=== PATIENT | male | born 2000 | race Two or more races ===

== ENCOUNTER 2024-04-09 08:30 | Emergency (ER) | payer OTHER ==
[~2024-04-09] VITALS: Ht 165.1 cm; Wt 54.5 kg
[2024-04-09 08:46] VITALS: TEMP 98.4
[2024-04-09] MEDS: LORazepam 1 MG TABLET PO ONE (08:47)
[2024-04-09] MEDS ORDERED: FLUO-418 PO (08:50)
[2024-04-09] MEDS ORDERED: HYDR-3831 PO (08:50)
[2024-04-09 09:56] VITALS: BP 122/70; PULSE 70; RESP 16
== END 2024-04-09 10:57 | disposition home or self-care (01) ==
LOC: EMS 08:30
DX: F41.9 Anxiety disorder, unspecified (principal)
CPT/HCPCS: 93005; 99284; Z7502; Z7610

== ENCOUNTER 2024-04-14 10:52 | Emergency (ER) | payer OTHER ==
[~2024-04-14] VITALS: Ht 167.6 cm; Wt 59.1 kg
[~2024-04-14 10:52] MED LIST: FLUO-418 PO; HYDR-3831 PO
[2024-04-14 11:05] VITALS: TEMP 98.1
[2024-04-14 12:57] LABS: BASOPHILS % (AUTO) 0.2 % (0.0-2.0); EOSINOPHILS % (AUTO) 0.1 % (1.0-6.0); HEMATOCRIT 44.8 % (41-53); MEAN CORPUSCULAR HEMOGLOBIN 30.6 pg (26.0-34.0); MEAN CORPUSCULAR HGB CONC 33.4 G/dL (31.0-37.0); MEAN CORPUSCULAR VOLUME 92 fL (80-100); MONOCYTES # (AUTO) 0.4 K/uL (0.1-1.0); MONOCYTES % (AUTO) 7.5 % (2.0-9.0); NEUTROPHILS # (AUTO) 3.5 K/uL (1.8-7.7); NEUTROPHILS % (AUTO) 71.2 % (40.0-70.0); PLATELET COUNT (AUTO) 221 K/uL (150-450); WHITE BLOOD COUNT (AUTO) 4.9 K/uL (4.5-11.0)
[2024-04-14 13:10] LABS: ANION GAP 5 mmol/L (8-16); CALCIUM, TOTAL 9.7 mg/dL (8.8-10.5); CARBON DIOXIDE 32 mmol/L (22-29); CHLORIDE 101 mmol/L (98-107); CREATININE 0.81 mg/dL (0.60-1.30); GLOMERULAR FILTR. RATE CALC > 60 mL/min (>60); GLUCOSE,RANDOM 97 mg/dL (70-110); POTASSIUM 4.7 mmol/L (3.5-5.1); SODIUM SERUM 138 mmol/L (136-145); UREA NITROGEN, BLOOD 8 mg/dL (7-18)
[2024-04-14 13:16] LABS: ALANINE AMINOTRANSFERASE 19 U/L (12-78); ALBUMIN 4.2 g/dL (3.4-5.0); ALKALINE PHOSPHATASE 81 U/L (46-116); ASPARTATE AMINOTRANSFERASE 16 U/L (15-37); BILIRUBIN,TOTAL 0.5 mg/dL (0.1-1.0); LIPASE 43 U/L (16-77); TOTAL PROTEIN, SERUM 7.6 g/dL (6.4-8.2)
[2024-04-14] MEDS: ONDANSETRON HCL 4 MG TABLET PO ONE (14:35)
[2024-04-14 15:13] LABS: APPEARANCE,URINE CLEAR (CLEAR); BILIRUBIN,URINE NEGATIVE (NEGATIVE); COLOR,URINE COLORLESS (YELLOW); GLUCOSE, URINE (UA) NEGATIVE (NEGATIVE); LEUKOCYTE ESTERASE ,URINE NEGATIVE (NEGATIVE); NITRATE,URINE NEGATIVE (NEGATIVE); OCCULT BLOOD,URINE NEGATIVE (NEGATIVE); PROTEIN,URINE NEGATIVE (NEGATIVE); SPECIFIC GRAVITIY, URINE 1.007 (1.003-1.030); UROBILINOGEN,URINE <=1.0 mg/dL (<=1.0)
[2024-04-14 15:19] LABS: ALCOHOL, URINE DRUG SCREEN NEGATIVE (NEGATIVE); AMPHET/METH SCREEN,URINE NEGATIVE (NEGATIVE); BARBITURATE SCREEN, URINE NEGATIVE (NEGATIVE); BENZODIAZEPINES SCREEN,URINE NEGATIVE (NEGATIVE); CANNABINOID SCREEN,URINE NEGATIVE (NEGATIVE); COCAINE SCREEN,URINE NEGATIVE (NEGATIVE); METHADONE SCREEN, URINE NEGATIVE (NEGATIVE); OPIATE SCREEN,URINE NEGATIVE (NEGATIVE); PHENCYCLIDINE SCREEN,URINE NEGATIVE (NEGATIVE)
[2024-04-14] MEDS ORDERED: ONDA-104 PO (16:01)
[2024-04-14] MEDS ORDERED: HYDR-3831 PO (16:08)
[2024-04-14 16:14] VITALS: BP 128/82; PULSE 70; RESP 18
== END 2024-04-14 16:15 | disposition home or self-care (01) ==
LOC: EMS 10:52
DX: R11.10 Vomiting, unspecified (principal); F41.9 Anxiety disorder, unspecified
CPT/HCPCS: 99283; 80053; 83690; 85025; 36415; 80307; 81003; Q0162

== ENCOUNTER 2024-05-08 10:22 | Emergency (ER) | payer OTHER ==
[~2024-05-08] VITALS: Ht 165.1 cm; Wt 51.8 kg
[~2024-05-08 10:22] MED LIST changes: +ONDA-104 PO
[2024-05-08 10:26] VITALS: TEMP 98.7
[2024-05-08] MEDS: SODIUM CHLORIDE 0.9% 1,000 ML IV ONE (10:57)
[2024-05-08] MEDS: FAMOTIDINE 20 MG/2 ML VIAL IVP ONE (10:57)
[2024-05-08] MEDS: KETOROLAC TROMETHAMINE 30 MG/ML VIAL IVP ONE (10:58)
[2024-05-08] MEDS: ONDANSETRON HCL 4 MG/2 ML VIAL IVP ONE (10:58)
[2024-05-08] MEDS: MAG HYDROX/ALUMINUM HYD/SIMETH 30 ML SUSPENSION UDCUP PO ONE (10:58)
[2024-05-08] MEDS ORDERED: SODIUM CHLORIDE 0.9% 100 ML ONE (11:09)
[2024-05-08] MEDS ORDERED: IOHEXOL 350 MG/ML 100 ML VIAL ONE (11:09)
[2024-05-08 11:10] LABS: BASOPHILS % (AUTO) 0.2 % (0.0-2.0); EOSINOPHILS % (AUTO) 0.1 % (1.0-6.0); HEMATOCRIT 43.8 % (41-53); HEMOGLOBIN 14.9 g/dL (13.5-17.5); LYMPHOCYTES # (AUTO) 0.7 K/uL (1.0-4.8); LYMPHOCYTES % (AUTO) 14.3 % (22.0-44.0); MEAN CORPUSCULAR HEMOGLOBIN 30.9 pg (26.0-34.0); MEAN CORPUSCULAR VOLUME 91 fL (80-100); MONOCYTES # (AUTO) 0.2 K/uL (0.1-1.0); MONOCYTES % (AUTO) 4.8 % (2.0-9.0); NEUTROPHILS # (AUTO) 3.8 K/uL (1.8-7.7); NEUTROPHILS % (AUTO) 80.6 % (40.0-70.0); PLATELET COUNT (AUTO) 220 K/uL (150-450); RED BLOOD CELL COUNT(AUTO) 4.81 MIL/uL (4.50-5.90); WHITE BLOOD COUNT (AUTO) 4.8 K/uL (4.5-11.0)
[2024-05-08 11:48] LABS: APPEARANCE,URINE HAZY (CLEAR); BILIRUBIN,URINE NEGATIVE (NEGATIVE); COLOR,URINE LIGHT YELLOW (YELLOW); GLUCOSE, URINE (UA) NEGATIVE (NEGATIVE); KETONES,URINE TRACE mg/dL (NEGATIVE); LEUKOCYTE ESTERASE ,URINE NEGATIVE (NEGATIVE); NITRATE,URINE NEGATIVE (NEGATIVE); OCCULT BLOOD,URINE NEGATIVE (NEGATIVE); PH,URINE 7.5 (5.0-8.0); PROTEIN,URINE NEGATIVE (NEGATIVE); SPECIFIC GRAVITIY, URINE 1.009 (1.003-1.030); UROBILINOGEN,URINE <=1.0 mg/dL (<=1.0)
[2024-05-08 11:52] LABS: ANION GAP 9 mmol/L (8-16); CALCIUM, TOTAL 9.1 mg/dL (8.8-10.5); CARBON DIOXIDE 27 mmol/L (22-29); CHLORIDE 101 mmol/L (98-107); CREATININE 0.89 mg/dL (0.60-1.30); GLOMERULAR FILTR. RATE CALC > 60 mL/min (>60); GLUCOSE,RANDOM 98 mg/dL (70-110); POTASSIUM 3.7 mmol/L (3.5-5.1); SODIUM SERUM 137 mmol/L (136-145); UREA NITROGEN, BLOOD 8 mg/dL (7-18)
[2024-05-08 11:56] LABS: ALANINE AMINOTRANSFERASE 21 U/L (12-78); ALBUMIN 4.2 g/dL (3.4-5.0); ALKALINE PHOSPHATASE 76 U/L (46-116); ASPARTATE AMINOTRANSFERASE 15 U/L (15-37); BILIRUBIN,TOTAL 0.5 mg/dL (0.1-1.0); LIPASE 46 U/L (16-77); TOTAL PROTEIN, SERUM 7.3 g/dL (6.4-8.2)
[2024-05-08 13:00] VITALS: BP 113/82; PULSE 84; RESP 16
[2024-05-08] MEDS ORDERED: ONDA-104 PO (13:01)
== END 2024-05-08 13:27 | disposition home or self-care (01) ==
LOC: EMS 10:23
DX: R19.7 Diarrhea, unspecified (principal); F41.9 Anxiety disorder, unspecified
CPT/HCPCS: 99285; 74177; 96374; 96375; 96361; 80048; 80076; 81003; 83690; 85025; 36415; Q9967; J3490; J1885; J2405; J7030; J7050

== ENCOUNTER 2024-05-09 12:55 | Inpatient (IN) | payer MEDICAID, OTHER ==
[~2024-05-09] VITALS: Ht 165.1 cm; Wt 51.9 kg
[2024-05-09 13:58] LABS: BASOPHILS % (AUTO) 0.4 % (0.0-2.0); EOSINOPHILS % (AUTO) 0.3 % (1.0-6.0); HEMOGLOBIN 14.8 g/dL (13.5-17.5); MEAN CORPUSCULAR HEMOGLOBIN 30.8 pg (26.0-34.0); MEAN CORPUSCULAR HGB CONC 33.5 G/dL (31.0-37.0); MEAN CORPUSCULAR VOLUME 92 fL (80-100); MONOCYTES # (AUTO) 0.4 K/uL (0.1-1.0); MONOCYTES % (AUTO) 8.8 % (2.0-9.0); NEUTROPHILS # (AUTO) 3.6 K/uL (1.8-7.7); NEUTROPHILS % (AUTO) 71.5 % (40.0-70.0); PLATELET COUNT (AUTO) 224 K/uL (150-450); RED BLOOD CELL COUNT(AUTO) 4.79 MIL/uL (4.50-5.90)
[2024-05-09 14:12] LABS: ANION GAP 7 mmol/L (8-16); CARBON DIOXIDE 29 mmol/L (22-29); CHLORIDE 101 mmol/L (98-107); CREATININE 0.85 mg/dL (0.60-1.30); GLOMERULAR FILTR. RATE CALC > 60 mL/min (>60); GLUCOSE,RANDOM 109 mg/dL (70-110); POTASSIUM 3.9 mmol/L (3.5-5.1); SODIUM SERUM 137 mmol/L (136-145); UREA NITROGEN, BLOOD 7 mg/dL (7-18)
[2024-05-09 14:20] LABS: ALCOHOL, URINE DRUG SCREEN NEGATIVE (NEGATIVE); AMPHET/METH SCREEN,URINE NEGATIVE (NEGATIVE); BARBITURATE SCREEN, URINE NEGATIVE (NEGATIVE); BENZODIAZEPINES SCREEN,URINE NEGATIVE (NEGATIVE); CANNABINOID SCREEN,URINE NEGATIVE (NEGATIVE); COCAINE SCREEN,URINE NEGATIVE (NEGATIVE); METHADONE SCREEN, URINE NEGATIVE (NEGATIVE); OPIATE SCREEN,URINE NEGATIVE (NEGATIVE); PHENCYCLIDINE SCREEN,URINE NEGATIVE (NEGATIVE)
[2024-05-09 14:31] LABS: ALCOHOL, BLOOD (SERUM) < 3 mg/dL (0-10)
[2024-05-09 15:49] LABS: COVID AG,FIA SOURCE NASAL SWAB
[2024-05-09 16:24] LABS: SARS-COV2 (COVID) ANTIGEN,FIA Negative (Negative)
[2024-05-10] MEDS: ZOLPIDEM TARTRATE 10 MG TABLET PO PRN (02:21)
[2024-05-10] MEDS: LORazepam 2 MG TABLET PO PRN (07:34)
[2024-05-10 11:45] VITALS: BP 114/6; PULSE 96; RESP 18; TEMP 99; O2SAT 99
[2024-05-10] MEDS: FLUoxetine HCL 20 MG CAPSULE PO SCH (14:18)
[2024-05-10 22:12] VITALS: BP 114/70; PULSE 86; RESP 16; TEMP 98.6; O2SAT 100
[2024-05-11 09:05] VITALS: BP 124/72; PULSE 93; RESP 16; TEMP 97.6; O2SAT 99
[2024-05-11 21:29] VITALS: BP 101/67; PULSE 90; RESP 19; TEMP 98.2; O2SAT 100
[2024-05-12 08:45] VITALS: BP 126/89; PULSE 90; RESP 18; TEMP 98.1; O2SAT 95
[2024-05-12] MEDS ORDERED: PETROLATUM,WHITE 28 GM JELLY TP PRN (10:00)
[2024-05-12] MEDS ORDERED: ONDANSETRON HCL 4 MG TABLET PO PRN (10:00)
[2024-05-12] MEDS ORDERED: CloNIDine HCL 0.1 MG TABLET PO PRN (10:00)
[2024-05-12] MEDS ORDERED: ACETAMINOPHEN 325 MG TABLET PO PRN (10:00)
[2024-05-12] MEDS ORDERED: ALBUTEROL SULFATE HFA 90 MCG/PUFF 8 GM INHALER IH PRN (10:00)
[2024-05-12] MEDS ORDERED: GuaiFENesin/D-METHORPHAN [SUGAR-FREE] 200-20MG/10 ML SYRUP UDCUP PO PRN (10:00)
[2024-05-12] MEDS ORDERED: IBUPROFEN 400 MG TABLET PO PRN (10:00)
[2024-05-12] MEDS ORDERED: LOPERAMIDE HCL 2 MG CAPSULE PO PRN (10:00)
[2024-05-12] MEDS ORDERED: NICOTINE 14 MG/24 HOUR PATCH TD PRN (10:00)
[2024-05-12] MEDS ORDERED: DOCUSATE SODIUM 100 MG CAPSULE PO PRN (10:00)
[2024-05-12] MEDS ORDERED: MAGNESIUM HYDROXIDE SUSPENSION 30 ML UDCUP PO PRN (10:00)
[2024-05-12] MEDS ORDERED: MAG HYDROX/ALUMINUM HYD/SIMETH ES 30 ML SUSPENSION UDCUP PO PRN (10:00)
[2024-05-12 21:00] VITALS: BP 117/74; PULSE 78; RESP 18; TEMP 98.2; O2SAT 98
[2024-05-12] MEDS: QUEtiapine FUMARATE 100 MG TABLET PO PRN (22:19)
[2024-05-13 08:46] LABS: CHOL/HDL RATIO 3.4 (4.2-7.3)
[2024-05-13 08:54] LABS: THYROID STIMULATING HORMONE 2.13 uIU/mL (0.36-3.74)
[2024-05-13 09:04] LABS: HEMOGLOBIN A1C 5.3 % (3.8-5.6)
[2024-05-13] MEDS: BusPIRone HCL 5 MG TABLET PO SCH (14:31)
[2024-05-13 14:58] VITALS: BP 108/71; PULSE 80; RESP 18; TEMP 98.7
[2024-05-13 23:04] VITALS: BP 116/73; PULSE 59; RESP 18; TEMP 97.5; O2SAT 100
[2024-05-14] MEDS: FLUoxetine HCL 20 MG CAPSULE PO SCH (08:51)
[2024-05-14 09:23] VITALS: BP 112/70; PULSE 87; RESP 16; TEMP 98.7; O2SAT 100
[2024-05-14] MEDS ORDERED: BUSP5TAB20 PO (12:25)
[2024-05-14] MEDS ORDERED: FLUO-418 PO (12:25)
== END 2024-05-14 17:40 | disposition home or self-care (01) | DRG 751 ==
LOC: EMS 12:55 → 3EI 05-10 12:44
PROVIDERS: ADMIT Psychiatry & Neurology Psychiatry; ATTEND Psychiatry & Neurology Psychiatry
PROC: GZHZZZZ Group Psychotherapy (ICD-10-PCS; principal; 2024-05-10)
DX: F33.2 Major depressive disorder, recurrent severe without psychotic features (principal); R45.851 Suicidal ideations; F41.0 Panic disorder [episodic paroxysmal anxiety]; K21.9 Gastro-esophageal reflux disease without esophagitis; Z20.822 Contact with and (suspected) exposure to COVID-19; G47.00 Insomnia, unspecified; Z79.899 Other long term (current) drug therapy
CPT/HCPCS: 80048; 80061; 80307; 83036; 84443; 85025; 99285; G0480